=== PATIENT | male | born 1945 | race African-American/Black ===

== ENCOUNTER 2017-11-25 02:26 | Inpatient (IN) | payer MEDICARE, OTHER ==
[2017-11-25] MEDS ORDERED: HEPARIN 25,000UTS/500ML PREMIX 500 ML IV (02:30)
[2017-11-25] MEDS ORDERED: ACETAMINOPHEN 325 MG TABLET. PO (02:45)
[2017-11-25] MEDS ORDERED: hydrALAZINE 20 MG/ML VIAL. IVP (02:45)
[2017-11-25] MEDS: MORPHINE SULFATE 4 MG/ML DISP.SYRIN. IV ×4 (02:59→21:03)
[2017-11-25] MEDS: ONDANSETRON PF 4 MG/2 ML VIAL. IV (03:00)
[2017-11-25 04:00] LABS: TROPONINI 1.009 ng/mL (0.000-0.055)
[2017-11-25 07:04] LABS: BASO % 0 % (0-3); EOS % 0 % (0-3); HEMATOCRIT 35.4 % (39.0-53.0); HEMOGLOBIN 11.8 g/dL (13.0-17.5); LYMPH # 0.2 x10^3/uL (1.0-4.8); LYMPH % 3 % (24-48); MEAN CORPUSCULAR HEMOGLOBIN 31 pg (25-35); MEAN CORPUSCULAR HGB CONC 33 g/dL (31-37); MEAN CORPUSCULAR VOLUME 94 fL (79-100); MONO # 0.1 x10^3/uL (0.0-1.1); MONO % 1 % (0-9); NEUT # 6.6 x10^3uL (1.8-7.7); NEUT % 96 % (31-73); PLATELET COUNT 139 x10^3/uL (140-400); RED BLOOD COUNT 3.76 x10^6/uL (4.30-5.70); RED CELL DISTRIBUTION WIDTH 15.7 % (11.5-14.5); WHITE BLOOD COUNT 6.9 x10^3/uL (4.0-11.0)
[2017-11-25 07:13] LABS: ADD MAN DIFF? YES
[2017-11-25] MEDS ORDERED: HEPARIN for IV BOLUS 10,000 UNIT/10 ML VIAL. IV ×2 (07:15)
[2017-11-25 07:22] LABS: ALBUMIN 2.7 g/dL (3.4-5.0); ALBUMIN/GLOBULIN RATIO 0.6 (1.0-1.7); ALK PHOS 63 U/L (46-116); ALT (SGPT) 56 U/L (16-63); ANION GAP 9 (6-14); AST (SGOT) 106 U/L (15-37); BLOOD UREA NITROGEN 23 mg/dL (8-26); BUN/CREATININE RATIO 14 (6-20); CALCIUM 7.5 mg/dL (8.5-10.1); CARBON DIOXIDE 24 mmol/L (21-32); CHLORIDE 106 mmol/L (98-107); CREATININE 1.7 mg/dL (0.7-1.3); GFR 48.2; GLUCOSE 156 mg/dL (70-99); POTASSIUM 4.5 mmol/L (3.5-5.1); SODIUM 139 mmol/L (136-145); TOTAL BILIRUBIN 0.5 mg/dL (0.2-1.0); TOTAL PROTEIN 7.1 g/dL (6.4-8.2)
[2017-11-25 07:37] LABS: UNFRACTIONATED HEPARIN TESTING > 1.10 IU/mL (0.30-0.70)
[2017-11-25 07:51] LABS: POC GLUCOSE 148 mg/dL (70-99)
[2017-11-25 09:14] LABS: CHOLESTEROL 123 mg/dL (0-200); HDLC 56 mg/dL (40-60); LDLC 63 mg/dL (0-100); NON-HDL CHOLESTEROL 67 mg/dL (0-129); TRIGLYCERIDES 21 mg/dL (0-150); VLDLC 4 mg/dL (0-40)
[2017-11-25 09:19] LABS: CHOLESTEROL/HDL RATIO 2.2
[2017-11-25 09:51] LABS: % BANDS 7 % (0-9); % LYMPHS 1 % (24-48); % SEGS 92 % (35-66); PLT ESTIMATE DECREASED (ADEQUATE)
[2017-11-25] MEDS: ASPIRIN ENTERIC COATED 325 MG TABLET.DR. PO (11:00)
[2017-11-25] MEDS: IPRATRPIUM/ALBUTEROL 0.5/2.5MG 3 ML NEBU. NEB ×3 (12:00→19:47)
[2017-11-25] MEDS ORDERED: fentaNYL PF VIAL 250 MCG/5 ML VIAL (13:04)
[2017-11-25] MEDS ORDERED: ROCURONIUM 50 MG/5 ML VIAL. (13:04)
[2017-11-25] MEDS ORDERED: IV RINGERS,LACTATED 1000ML 1,000 ML IV (13:05)
[2017-11-25] MEDS ORDERED: fentaNYL PF VIAL 100 MCG/2 ML VIAL IV (13:15)
[2017-11-25] MEDS ORDERED: PROCHLORPERAZINE 10 MG/2 ML VIAL. IV (13:15)
[2017-11-25] MEDS ORDERED: LIDOCAINE 1% PF 2 ML VIAL. ID (13:15)
[2017-11-25] MEDS ORDERED: MORPHINE SULFATE 2 MG/ML DISP.SYRIN. IV (13:15)
[2017-11-25] MEDS ORDERED: IOHEXOL 300 MG/ML 100ML VIAL. (13:22)
[2017-11-25] MEDS ORDERED: GELATIN SPONGE SIZE 100. (13:22)
[2017-11-25] MEDS ORDERED: PAPAVERINE 60 MG/2 ML VIAL FOR OR ONLY. (13:23)
[2017-11-25] MEDS ORDERED: LIDOCAINE 1% PF 30 ML VIAL. (13:23)
[2017-11-25] MEDS ORDERED: THROMBIN TOPICAL 5,000 UNIT VIAL. (13:23)
[2017-11-25] MEDS ORDERED: SODIUM BICARB ADULT 8.4% 50 MEQ/50 ML DISP.SYRIN. (13:23)
[2017-11-25] MEDS: ALTEPLASE 2 MG VIAL INT CAT (14:30)
[2017-11-25 14:54] LABS: INR 1.6 (0.8-1.1)
[2017-11-25 15:24] LABS: UNFRACTIONATED HEPARIN TESTING > 1.10 IU/mL (0.30-0.70)
[2017-11-25] MEDS: SURGICEL FIBRILLAR 1X2 EACH. (15:26)
[2017-11-25] MEDS: HEPARIN SODIUM 5,000 UNIT in IV NORMAL SALINE 500ML BAG 500 ML IRR (15:26)
[2017-11-25] MEDS ORDERED: ROCURONIUM 100 MG/10 ML VIAL. (16:28)
[2017-11-25] MEDS ORDERED: PHENYLEPHRINE in 0.9% NACL PF 1 MG/10 ML SYRINGE. IV (16:39)
[2017-11-25] MEDS ORDERED: MANNITOL 25% 12.5 G/50 ML VIAL FOR OR. (16:40)
[2017-11-25] MEDS ORDERED: PROPOFOL 20 ML IV (17:09)
[2017-11-25] MEDS ORDERED: LIDOCAINE 2% PF Vial for OR 5 ML VIAL. (17:09)
[2017-11-25] MEDS ORDERED: DEXAMETHASONE SOD PHOS 20 MG/5 ML VIAL. (17:09)
[2017-11-25] MEDS ORDERED: ONDANSETRON PF 4 MG/2 ML VIAL. (17:09)
[2017-11-25] MEDS ORDERED: SEVOFLURANE > 120 MINUTES. IH ×2 (17:09→18:28)
[2017-11-25] MEDS: MANNITOL 20% PREMIX 500 ML IV (17:15)
[2017-11-25] MEDS ORDERED: GLYCOPYRROLATE 1 MG/5 ML VIAL. (18:07)
[2017-11-25] MEDS ORDERED: NEOSTIGMINE METHYLSULFATE 5 MG/5 ML SYRINGE. (18:07)
[2017-11-25] MEDS ORDERED: fentaNYL PF VIAL 100 MCG/2 ML VIAL (18:17)
[2017-11-25] MEDS: HEPARIN 25,000UTS/500ML PREMIX 500 ML IV (19:46)
[2017-11-25] MEDS: SODIUM BICARBONATE VIAL 150 MEQ in IV DEXTROSE 5% 1,000 ML IV (19:50)
[2017-11-25 20:10] LABS: MRSA BY PCR Negative (Negative)
[2017-11-25] MEDS: AZITHROMYCIN 500 MG in IV DEXTROSE 5 %-0.2 % NACL 250 ML IV (20:49)
[2017-11-25] MEDS: cefTRIAXone IV Push 1 GM VIAL. IVP (21:35)
[2017-11-26] MEDS: IPRATRPIUM/ALBUTEROL 0.5/2.5MG 3 ML NEBU. NEB ×5 (02:21→19:35)
[2017-11-26] MEDS: MORPHINE SULFATE 4 MG/ML DISP.SYRIN. IV ×3 (02:35→23:51)
[2017-11-26] MEDS: SODIUM BICARBONATE VIAL 150 MEQ in IV DEXTROSE 5% 1,000 ML IV ×3 (02:41→21:32)
[2017-11-26 05:29] LABS: HEMATOCRIT 32.4 % (39.0-53.0); MEAN CORPUSCULAR HEMOGLOBIN 32 pg (25-35); MEAN CORPUSCULAR HGB CONC 34 g/dL (31-37); MEAN CORPUSCULAR VOLUME 94 fL (79-100); PLATELET COUNT 158 x10^3/uL (140-400); RED BLOOD COUNT 3.45 x10^6/uL (4.30-5.70); RED CELL DISTRIBUTION WIDTH 15.7 % (11.5-14.5); WHITE BLOOD COUNT 9.7 x10^3/uL (4.0-11.0)
[2017-11-26 05:39] LABS: UNFRACTIONATED HEPARIN TESTING 0.84 IU/mL (0.30-0.70)
[2017-11-26 05:57] LABS: ALBUMIN 2.3 g/dL (3.4-5.0); ALBUMIN/GLOBULIN RATIO 0.6 (1.0-1.7); ALK PHOS 57 U/L (46-116); ALT (SGPT) 70 U/L (16-63); ANION GAP 5 (6-14); AST (SGOT) 221 U/L (15-37); BLOOD UREA NITROGEN 25 mg/dL (8-26); BUN/CREATININE RATIO 16 (6-20); CALCIUM 7.6 mg/dL (8.5-10.1); CARBON DIOXIDE 30 mmol/L (21-32); CHLORIDE 103 mmol/L (98-107); CREATININE 1.6 mg/dL (0.7-1.3); GFR 51.7; GLUCOSE 160 mg/dL (70-99); POTASSIUM 4.6 mmol/L (3.5-5.1); SODIUM 138 mmol/L (136-145); TOTAL BILIRUBIN 0.3 mg/dL (0.2-1.0); TOTAL PROTEIN 5.9 g/dL (6.4-8.2)
[2017-11-26 06:11] LABS: CKMB INDEX 1.7 % (0-4); CREATINE KINASE 6716 U/L (39-308)
[2017-11-26] MEDS: ASPIRIN ENTERIC COATED 81 MG TABLET.DR. PO (07:33)
[2017-11-26] MEDS ORDERED: SURGICEL FIBRILLAR 1X2 EACH. (09:13)
[2017-11-26] MEDS ORDERED: THROMBIN TOPICAL 5,000 UNIT VIAL. (09:13)
[2017-11-26] MEDS ORDERED: IOHEXOL 300 MG/ML 100ML VIAL. (09:13)
[2017-11-26] MEDS ORDERED: LIDOCAINE 1% PF 30 ML VIAL. (09:13)
[2017-11-26] MEDS ORDERED: GELATIN MUCOSAL POWDER. (09:14)
[2017-11-26] MEDS ORDERED: PAPAVERINE 60 MG/2 ML VIAL FOR OR ONLY. (09:14)
[2017-11-26] MEDS ORDERED: BUPIVACAINE MPF 0.25% 30 ML VIAL. (09:14)
[2017-11-26] MEDS ORDERED: ePHEDrine PF IN SALINE 50 MG/5 ML DISP.SYRIN IV (09:46)
[2017-11-26] MEDS ORDERED: PHENYLEPHRINE in 0.9% NACL PF 1 MG/10 ML SYRINGE. IV (09:46)
[2017-11-26] MEDS ORDERED: ONDANSETRON PF 4 MG/2 ML VIAL. (09:50)
[2017-11-26] MEDS ORDERED: LIDOCAINE 2% PF Vial for OR 5 ML VIAL. (09:50)
[2017-11-26] MEDS ORDERED: PROPOFOL 20 ML IV (09:50)
[2017-11-26] MEDS ORDERED: DEXAMETHASONE SOD PHOS 20 MG/5 ML VIAL. (09:50)
[2017-11-26] MEDS ORDERED: ROCURONIUM 50 MG/5 ML VIAL. (09:50)
[2017-11-26] MEDS ORDERED: fentaNYL PF VIAL 100 MCG/2 ML VIAL (09:51)
[2017-11-26] MEDS ORDERED: IV RINGERS,LACTATED 1000ML 1,000 ML IV (09:54)
[2017-11-26] MEDS ORDERED: LIDOCAINE 1% PF 2 ML VIAL. ID (10:00)
[2017-11-26] MEDS ORDERED: PROCHLORPERAZINE 10 MG/2 ML VIAL. IV (10:00)
[2017-11-26] MEDS ORDERED: MORPHINE SULFATE 2 MG/ML DISP.SYRIN. IV (10:00)
[2017-11-26] MEDS ORDERED: fentaNYL PF VIAL 100 MCG/2 ML VIAL IV (10:00)
[2017-11-26] MEDS: HEPARIN SODIUM 5,000 UNIT in IV NORMAL SALINE 500ML BAG 500 ML IRR (10:54)
[2017-11-26] MEDS ORDERED: NEOSTIGMINE METHYLSULFATE 5 MG/5 ML SYRINGE. (11:15)
[2017-11-26] MEDS ORDERED: GLYCOPYRROLATE 1 MG/5 ML VIAL. (11:15)
[2017-11-26] MEDS: fentaNYL PF VIAL 100 MCG/2 ML VIAL IV ×2 (12:39→21:32)
[2017-11-26] MEDS: AZITHROMYCIN 500 MG in IV DEXTROSE 5 %-0.2 % NACL 250 ML IV (21:30)
[2017-11-26] MEDS: cefTRIAXone IV Push 1 GM VIAL. IVP (21:45)
[2017-11-26] MEDS: oxyCODONE/APAP 5/325 1 TAB TABLET PO (23:16)
[2017-11-27] MEDS: oxyCODONE/APAP 5/325 1 TAB TABLET PO ×3 (03:21→13:44)
[2017-11-27 04:54] LABS: HEMOGLOBIN 11.1 g/dL (13.0-17.5); MEAN CORPUSCULAR HEMOGLOBIN 32 pg (25-35); MEAN CORPUSCULAR HGB CONC 34 g/dL (31-37); MEAN CORPUSCULAR VOLUME 94 fL (79-100); PLATELET COUNT 143 x10^3/uL (140-400); RED BLOOD COUNT 3.53 x10^6/uL (4.30-5.70); RED CELL DISTRIBUTION WIDTH 15.8 % (11.5-14.5); WHITE BLOOD COUNT 5.9 x10^3/uL (4.0-11.0)
[2017-11-27 05:31] LABS: ALBUMIN 2.1 g/dL (3.4-5.0); ALBUMIN/GLOBULIN RATIO 0.5 (1.0-1.7); ALK PHOS 51 U/L (46-116); ALT (SGPT) 59 U/L (16-63); ANION GAP 2 (6-14); AST (SGOT) 173 U/L (15-37); BLOOD UREA NITROGEN 21 mg/dL (8-26); BUN/CREATININE RATIO 14 (6-20); CALCIUM 7.6 mg/dL (8.5-10.1); CARBON DIOXIDE 33 mmol/L (21-32); CHLORIDE 103 mmol/L (98-107); CREATININE 1.5 mg/dL (0.7-1.3); GFR 55.7; GLUCOSE 107 mg/dL (70-99); POTASSIUM 4.3 mmol/L (3.5-5.1); SODIUM 138 mmol/L (136-145); TOTAL BILIRUBIN 0.4 mg/dL (0.2-1.0)
[2017-11-27 05:35] LABS: CREATINE KINASE 3696 U/L (39-308)
[2017-11-27] MEDS: ASPIRIN ENTERIC COATED 81 MG TABLET.DR. PO (07:05)
[2017-11-27] MEDS: SODIUM BICARBONATE VIAL 150 MEQ in IV DEXTROSE 5% 1,000 ML IV ×3 (07:09→14:57)
[2017-11-27] MEDS: IPRATRPIUM/ALBUTEROL 0.5/2.5MG 3 ML NEBU. NEB ×4 (07:49→19:45)
[2017-11-27] MEDS: amLODIPine BESYLATE 10 MG TABLET PO (09:18)
[2017-11-27] MEDS: HEPARIN 25,000UTS/500ML PREMIX 500 ML IV (09:56)
[2017-11-27] MEDS: ANTI-COAG MONITOR BY PHARMACY. MC (11:54)
[2017-11-27] MEDS: PROMETH/CODEINE 6.25/10MG 5 ML SYRUP. PO ×2 (14:57→23:04)
[2017-11-27] MEDS: MORPHINE SULFATE 4 MG/ML DISP.SYRIN. IV (18:18)
[2017-11-27] MEDS: LACTOBACILLUS RHAMNOSUS GG 1 CAPSULE. PO (21:12)
[2017-11-27] MEDS: cefTRIAXone IV Push 1 GM VIAL. IVP (21:12)
[2017-11-27] MEDS: AZITHROMYCIN 500 MG in IV DEXTROSE 5 %-0.2 % NACL 250 ML IV (21:12)
[2017-11-28] MEDS: SODIUM BICARBONATE VIAL 150 MEQ in IV DEXTROSE 5% 1,000 ML IV (03:42)
[2017-11-28 07:43] LABS: PARTIAL THROMBOPLASTIN TIME 50 SEC (24-38)
[2017-11-28 08:06] LABS: ANION GAP 6 (6-14); BLOOD UREA NITROGEN 16 mg/dL (8-26); CALCIUM 8.1 mg/dL (8.5-10.1); CARBON DIOXIDE 31 mmol/L (21-32); CHLORIDE 101 mmol/L (98-107); CREATININE 1.3 mg/dL (0.7-1.3); GFR 65.7; GLUCOSE 125 mg/dL (70-99); POTASSIUM 4.3 mmol/L (3.5-5.1); SODIUM 138 mmol/L (136-145)
[2017-11-28 08:11] LABS: CREATINE KINASE 2420 U/L (39-308)
[2017-11-28] MEDS: IPRATRPIUM/ALBUTEROL 0.5/2.5MG 3 ML NEBU. NEB ×4 (08:14→19:59)
[2017-11-28] MEDS: ASPIRIN ENTERIC COATED 81 MG TABLET.DR. PO (09:09)
[2017-11-28] MEDS: oxyCODONE/APAP 5/325 1 TAB TABLET PO ×2 (09:09→14:04)
[2017-11-28] MEDS: LACTOBACILLUS RHAMNOSUS GG 1 CAPSULE. PO ×2 (09:09→21:56)
[2017-11-28] MEDS: amLODIPine BESYLATE 10 MG TABLET PO (09:12)
[2017-11-28] MEDS: MORPHINE SULFATE 4 MG/ML DISP.SYRIN. IV ×2 (16:56→20:40)
[2017-11-28] MEDS: cefTRIAXone IV Push 1 GM VIAL. IVP (21:56)
[2017-11-28] MEDS: AZITHROMYCIN 500 MG in IV DEXTROSE 5 %-0.2 % NACL 250 ML IV (21:57)
[2017-11-29] MEDS: PROMETH/CODEINE 6.25/10MG 5 ML SYRUP. PO (00:44)
[2017-11-29] MEDS: IV NORMAL SALINE 1000ML BAG 1,000 ML IV ×2 (02:27→18:00)
[2017-11-29] MEDS: MORPHINE SULFATE 4 MG/ML DISP.SYRIN. IV ×3 (04:15→20:32)
[2017-11-29 05:31] LABS: PARTIAL THROMBOPLASTIN TIME 50 SEC (24-38)
[2017-11-29 06:06] LABS: ANION GAP 4 (6-14); BLOOD UREA NITROGEN 20 mg/dL (8-26); CALCIUM 8.1 mg/dL (8.5-10.1); CARBON DIOXIDE 31 mmol/L (21-32); CHLORIDE 102 mmol/L (98-107); CREATININE 1.3 mg/dL (0.7-1.3); GFR 65.7; GLUCOSE 111 mg/dL (70-99); POTASSIUM 4.7 mmol/L (3.5-5.1); SODIUM 137 mmol/L (136-145)
[2017-11-29 06:08] LABS: CREATINE KINASE 1232 U/L (39-308)
[2017-11-29] MEDS: IPRATRPIUM/ALBUTEROL 0.5/2.5MG 3 ML NEBU. NEB ×4 (07:56→20:06)
[2017-11-29] MEDS: ASPIRIN ENTERIC COATED 81 MG TABLET.DR. PO (08:26)
[2017-11-29] MEDS: LACTOBACILLUS RHAMNOSUS GG 1 CAPSULE. PO ×2 (08:26→20:32)
[2017-11-29] MEDS: amLODIPine BESYLATE 10 MG TABLET PO (08:27)
[2017-11-29] MEDS: ANTI-COAG MONITOR BY PHARMACY. MC (09:11)
[2017-11-29] MEDS: oxyCODONE/APAP 5/325 1 TAB TABLET PO (12:55)
[2017-11-29] MEDS ORDERED: MIDAZOLAM HCL/PF 2 MG/2 ML VIAL. (13:25)
[2017-11-29] MEDS ORDERED: fentaNYL PF VIAL 100 MCG/2 ML VIAL ×2 (13:25→15:15)
[2017-11-29] MEDS ORDERED: HEPARIN for IV BOLUS 10,000 UNIT/10 ML VIAL. (13:25)
[2017-11-29] MEDS ORDERED: LIDOCAINE WITH 8.4% SOD BICARB 3 ML DISP.SYRIN. (13:29)
[2017-11-29] MEDS ORDERED: IODIXANOL 320MG/ML 50ML VIAL. (13:29)
[2017-11-29] MEDS ORDERED: IODIXANOL 320 MG/ML 100 ML VIAL. (13:29)
[2017-11-29] MEDS ORDERED: CONTRAST GIVEN MC (14:45)
[2017-11-29] MEDS: IODIXANOL 320 MG/ML 100 ML VIAL. IART (15:04)
[2017-11-29] MEDS: LIDOCAINE WITH 8.4% SOD BICARB 3 ML DISP.SYRIN. IJ (15:04)
[2017-11-29] MEDS: fentaNYL PF VIAL 100 MCG/2 ML VIAL IV ×2 (15:05→15:27)
[2017-11-29] MEDS: MIDAZOLAM HCL/PF 2 MG/2 ML VIAL. IV (15:05)
[2017-11-30] MEDS: PROMETH/CODEINE 6.25/10MG 5 ML SYRUP. PO (00:02)
[2017-11-30] MEDS: IV NORMAL SALINE 1000ML BAG 1,000 ML IV ×5 (00:04→23:23)
[2017-11-30 05:17] LABS: HEMATOCRIT 37.3 % (39.0-53.0); HEMOGLOBIN 12.4 g/dL (13.0-17.5); MEAN CORPUSCULAR HEMOGLOBIN 31 pg (25-35); MEAN CORPUSCULAR HGB CONC 33 g/dL (31-37); MEAN CORPUSCULAR VOLUME 95 fL (79-100); PLATELET COUNT 276 x10^3/uL (140-400); RED BLOOD COUNT 3.94 x10^6/uL (4.30-5.70); RED CELL DISTRIBUTION WIDTH 15.6 % (11.5-14.5); WHITE BLOOD COUNT 11.5 x10^3/uL (4.0-11.0)
[2017-11-30 05:50] LABS: ALBUMIN 2.4 g/dL (3.4-5.0); ALBUMIN/GLOBULIN RATIO 0.5 (1.0-1.7); ALK PHOS 62 U/L (46-116); ALT (SGPT) 64 U/L (16-63); ANION GAP 7 (6-14); AST (SGOT) 96 U/L (15-37); BLOOD UREA NITROGEN 23 mg/dL (8-26); BUN/CREATININE RATIO 16 (6-20); CALCIUM 8.8 mg/dL (8.5-10.1); CARBON DIOXIDE 28 mmol/L (21-32); CHLORIDE 101 mmol/L (98-107); CREATINE KINASE 605 U/L (39-308); CREATININE 1.4 mg/dL (0.7-1.3); GFR 60.3; GLUCOSE 114 mg/dL (70-99); POTASSIUM 4.8 mmol/L (3.5-5.1); SODIUM 136 mmol/L (136-145); TOTAL BILIRUBIN 0.6 mg/dL (0.2-1.0); TOTAL PROTEIN 7.2 g/dL (6.4-8.2)
[2017-11-30] MEDS: IPRATRPIUM/ALBUTEROL 0.5/2.5MG 3 ML NEBU. NEB ×4 (07:23→19:28)
[2017-11-30] MEDS ORDERED: HEPARIN 25,000UTS/500ML PREMIX 500 ML IV (07:45)
[2017-11-30] MEDS: LACTOBACILLUS RHAMNOSUS GG 1 CAPSULE. PO ×2 (08:37→21:39)
[2017-11-30] MEDS: ASPIRIN ENTERIC COATED 81 MG TABLET.DR. PO (08:37)
[2017-11-30] MEDS: amLODIPine BESYLATE 10 MG TABLET PO (08:38)
[2017-11-30] MEDS: oxyCODONE/APAP 5/325 1 TAB TABLET PO ×3 (08:38→22:07)
[2017-11-30] MEDS: MORPHINE SULFATE 4 MG/ML DISP.SYRIN. IV (09:22)
[2017-12-01] MEDS ORDERED: LACTOBACILLUS RHAMNOSUS GG 1 CAPSULE. PO (06:00)
[2017-12-01] MEDS ORDERED: PROMETH/CODEINE 6.25/10MG 5 ML SYRUP. (06:00)
[2017-12-01] MEDS ORDERED: ASPIRIN ENTERIC COATED 81 MG TABLET.DR. PO (06:00)
[2017-12-01] MEDS ORDERED: amLODIPine BESYLATE 10 MG TABLET (06:00)
[2017-12-01] MEDS: IPRATRPIUM/ALBUTEROL 0.5/2.5MG 3 ML NEBU. NEB ×2 (07:40→11:20)
[2017-12-01] MEDS: ASPIRIN ENTERIC COATED 81 MG TABLET.DR. PO (08:00)
[2017-12-01] MEDS: LACTOBACILLUS RHAMNOSUS GG 1 CAPSULE. PO (09:00)
[2017-12-01] MEDS: amLODIPine BESYLATE 10 MG TABLET PO (09:00)
[2017-12-01 09:03] LABS: ANION GAP 6 (6-14); BLOOD UREA NITROGEN 22 mg/dL (8-26); CALCIUM 8.4 mg/dL (8.5-10.1); CARBON DIOXIDE 27 mmol/L (21-32); CHLORIDE 104 mmol/L (98-107); CREATINE KINASE 307 U/L (39-308); CREATININE 1.3 mg/dL (0.7-1.3); GFR 65.7; GLUCOSE 106 mg/dL (70-99); POTASSIUM 4.3 mmol/L (3.5-5.1); SODIUM 137 mmol/L (136-145)
[2017-12-01] MEDS: IV NORMAL SALINE 1000ML BAG 1,000 ML IV (09:03)
[2017-12-01 10:12] LABS: HEMATOCRIT 36.6 % (39.0-53.0); MEAN CORPUSCULAR HEMOGLOBIN 31 pg (25-35); MEAN CORPUSCULAR HGB CONC 33 g/dL (31-37); MEAN CORPUSCULAR VOLUME 95 fL (79-100); PLATELET COUNT 299 x10^3/uL (140-400); RED BLOOD COUNT 3.86 x10^6/uL (4.30-5.70); RED CELL DISTRIBUTION WIDTH 15.5 % (11.5-14.5)
== END 2017-12-01 16:16 | DRG 853 ==
LOC: 2 NORTH 11-30 19:58 → 1 WEST ICU 02:26
PROVIDERS: Internal Medicine
PROC: 04CN0ZZ Extirpation of Matter from Left Popliteal Artery, Open Approach (ICD-10-PCS; principal; 2017-11-25 13:30)
PROC: 041N09L Bypass Left Popliteal Artery to Popliteal Artery with Autologous Venous Tissue, Open Approach (ICD-10-PCS; 2017-11-25 13:30)
PROC: 06BY4ZZ Excision of Lower Vein, Percutaneous Endoscopic Approach (ICD-10-PCS; 2017-11-25 13:30)
PROC: 0KNT0ZZ Release Left Lower Leg Muscle, Open Approach (ICD-10-PCS; 2017-11-25 14:51)
PROC: B4101ZZ Fluoroscopy of Abdominal Aorta using Low Osmolar Contrast (ICD-10-PCS; 2017-11-25 14:51)
PROC: B41C1ZZ Fluoroscopy of Pelvic Arteries using Low Osmolar Contrast (ICD-10-PCS; 2017-11-25 14:51)
PROC: B41G1ZZ Fluoroscopy of Left Lower Extremity Arteries using Low Osmolar Contrast (ICD-10-PCS; 2017-11-25 14:51)
PROC: B41F1ZZ Fluoroscopy of Right Lower Extremity Arteries using Low Osmolar Contrast (ICD-10-PCS; 2017-11-25 14:51)
DX: A41.9 Sepsis, unspecified organism (principal); I21.4 Non-ST elevation (NSTEMI) myocardial infarction; J96.01 Acute respiratory failure with hypoxia; J18.9 Pneumonia, unspecified organism; T79.A22A Traumatic compartment syndrome of left lower extremity, initial encounter; N17.9 Acute kidney failure, unspecified; G45.9 Transient cerebral ischemic attack, unspecified; J44.0 Chronic obstructive pulmonary disease with (acute) lower respiratory infection; J44.1 Chronic obstructive pulmonary disease with (acute) exacerbation; L97.319 Non-pressure chronic ulcer of right ankle with unspecified severity; M62.82 Rhabdomyolysis; I72.4 Aneurysm of artery of lower extremity; I99.8 Other disorder of circulatory system; E11.22 Type 2 diabetes mellitus with diabetic chronic kidney disease; E11.51 Type 2 diabetes mellitus with diabetic peripheral angiopathy without gangrene; E11.622 Type 2 diabetes mellitus with other skin ulcer; E78.5 Hyperlipidemia, unspecified; I12.9 Hypertensive chronic kidney disease with stage 1 through stage 4 chronic kidney disease, or unspecified chronic kidney disease; I27.20 Pulmonary hypertension, unspecified; N18.9 Chronic kidney disease, unspecified; Z86.73 Personal history of transient ischemic attack (TIA), and cerebral infarction without residual deficits; Z96.651 Presence of right artificial knee joint; X58.XXXA Exposure to other specified factors, initial encounter; Z80.9 Family history of malignant neoplasm, unspecified
CPT/HCPCS: 36246; 36415; 71250; 75625; 75716; 76937; 80048; 80053; 80061; 82550; 82553; 82962; 84484; 85007; 85025; 85027; 85520; 85610; 85730; 86850; 86900; 86901; 87641; 93005; 93306; 93880; 93926; 93971; 94640; 94760; 97110-GP; 97116-GP; 97162-GP; 97166-GO; 97530-GP; 99152; 99153; A7015; C1713; C1757; C1760; C1769; C1892; C1894; G0269; J0456; J0690; J0696; J1100; J1644; J2150; J2250; J2270; J2370; J2405; J2440; J2704; J2710; J3010; J3490; J7030; J7040; J7120; J7620; Q9967

== ENCOUNTER → 2017-12-21 | Outpatient (CLI) | payer MEDICARE, OTHER | END | disposition home or self-care (01) | LOC: PMGWOUND 09:40 | DX: T81.31XD Disruption of external operation (surgical) wound, not elsewhere classified, subsequent encounter (principal); E11.622 Type 2 diabetes mellitus with other skin ulcer; L97.811 Non-pressure chronic ulcer of other part of right lower leg limited to breakdown of skin; E11.51 Type 2 diabetes mellitus with diabetic peripheral angiopathy without gangrene; F41.9 Anxiety disorder, unspecified; E11.22 Type 2 diabetes mellitus with diabetic chronic kidney disease; I12.9 Hypertensive chronic kidney disease with stage 1 through stage 4 chronic kidney disease, or unspecified chronic kidney disease; N18.9 Chronic kidney disease, unspecified; J96.11 Chronic respiratory failure with hypoxia; E78.5 Hyperlipidemia, unspecified; J44.1 Chronic obstructive pulmonary disease with (acute) exacerbation; Z86.73 Personal history of transient ischemic attack (TIA), and cerebral infarction without residual deficits; Z96.651 Presence of right artificial knee joint; Y83.8 Other surgical procedures as the cause of abnormal reaction of the patient, or of later complication, without mention of misadventure at the time of the procedure; Y92.89 Other specified places as the place of occurrence of the external cause | CPT/HCPCS: 93971; 97597 ==